=== PATIENT | female | born 1960 | race Caucasian/White ===

== ENCOUNTER 2020-02-23 22:57 | Emergency (ER) | payer OTHER ==
[2020-02-23 23:09] VITALS: BP 160/90; PULSE 145
[2020-02-23] MEDS ORDERED: Diltiazem 50 MG/10 ML SDV IVPUSH STA (23:13)
[2020-02-23] MEDS ORDERED: Diltiazem 100 MG in Sodium Chloride 0.9% 100 ML IV SCH (23:15)
--- NOTE | 2020-02-23 23:31 | EDM.PDOC ---
ED HPI GENERAL MEDICAL PROBLEM - General Chief Complaint: Cardiovascular Problem Stated Complaint: HEART RATE AT 155 Time Seen by Provider: 02/23/20 23:08 Source of Information: Reports: Patient History Limitations: Reports: No Limitations - History of Present Illness INITIAL COMMENTS - FREE TEXT/NARRATIVE: Mrs. Ulrich is a very pleasant 59-year-old woman who now presents to the ED with rapid palpitations. She states that she developed the sensation of a racing heart around 22:45 tonight, while lying in bed. No associated chest pain or discomfort, dyspnea, nausea, or diaphoresis. The patient did not take any [id number] or home remedies prior to coming to the ED. The patient states that she has had similar symptoms in the past, initially about 4 or 5 years ago. She believes she had a Holter monitor, which did not find any abnormalities. She then had another episode in December of this year, then 2 episodes about 3 weeks ago. She saw her PCP, who ordered a Holter monitor, which just arrived yesterday, however, the patient has not yet applied it. Here in the ED, the patient's initial BP is found to be modestly elevated at 160/90, with a tachycardia of 145 bpm. She is afebrile, saturating 100% on room air. The patient states that she has been told that she snores, but she has not been diagnosed with obstructive sleep apnea. Other than the rapid palpitations, the patient denies having a recent fever, chills, sore throat, ear pain, nasal or sinus congestion, cough, dyspnea, chest pain, nausea, vomiting, constipation, diarrhea, abdominal pain, urinary symptoms, recent weight gain or weight loss, recent bloody bowel movements or black bowel movements, recent joint aches, headaches, or rashes. The patient's PCP is Dr. Patricia Roach. - Related Data Allergies Allergy/AdvReac Type Severity Reaction Status Date / Time sulfamethoxazole Allergy Rash Verified 02/23/20 23:06 [From Bactrim] trimethoprim [From Bactrim] Allergy Rash Verified 02/23/20 23:06 Home Meds: Home Meds Hydrochlorothiazide 25 mg PO DAILY 11/21/15 [History] Levothyroxine 125 mcg PO DAILY 11/21/15 [History] Lisinopril 20 mg PO DAILY 11/21/15 [History] Meloxicam 7.5 mg PO DAILY 11/21/15 [History] Past Medical History HEENT History: Reports: Impaired Vision (wears glasses) Cardiovascular History: Reports: Hypertension Respiratory History: Reports: Asthma (PFT-confirmed) Musculoskeletal History: Reports: Osteoarthritis Endocrine/Metabolic History: Reports: Hypothyroidism - Past Surgical History HEENT Surgical History: Reports: Oral Surgery (wisdom teeth extraction in HS) Musculoskeletal Surgical History: Reports: Hip Replacement (right) Social & Family History - Tobacco Use Smoking Status *Q: Never Smoker - Alcohol Use Alcohol Use History: Yes Alcohol Use Frequency: Socially - Recreational Drug Use Recreational Drug Use: No - Living Situation & Occupation Living situation: Reports: (), Alone 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 ED EXAM, GENERAL - Physical Exam Exam: See Below Exam Limited By: No Limitations General Appearance: Alert, WD/WN, No Apparent Distress Eye Exam: Bilateral Eye: EOMI, Normal Inspection Ears: Normal External Exam, Hearing Grossly Normal Nose: Normal Inspection Throat/Mouth: Normal Inspection, Normal Lips, Normal Voice, No Airway Compromise Head: Atraumatic, Normocephalic Neck: Normal Inspection, Full Range of Motion Respiratory/Chest: No Respiratory Distress, Lungs Clear, Normal Breath Sounds, No Accessory Muscle Use Cardiovascular: Normal Peripheral Pulses, No Edema, No Gallop, No JVD, No Murmur, No Rub, Tachycardia (regular) Peripheral Pulses: 3+: Radial (L), Radial (R) GI/Abdominal: Normal Bowel Sounds, Soft, Non-Tender, No Organomegaly, No Distention, No Abnormal Bruit, No Mass (Female) Exam: Deferred Rectal (Female) Exam: Deferred Back Exam: Normal Inspection, Full Range of Motion, NT Extremities: Normal Inspection, Normal Range of Motion, No Pedal Edema, Normal Capillary Refill Neurological: Alert, Oriented, Normal Cognition, No Motor/Sensory Deficits Psychiatric: Normal Affect Skin Exam: Warm, Dry, Intact, Normal Color, No Rash EKG INTERPRETATION EKG Date: 02/23/20 Time: 23:06 Rhythm: A-Flutter (2:1 conduction) Rate (Beats/Min): 153 [place]: Normal P-Wave: Present QRS: Other (LVH likely secondary to repolarization abnormality) ST-T: Depressed (ST depression inferior lateral leads without T wave inversion, likely secondary to repolarization abnormality) QT: Normal Comparison: Change From Previous EKG (Was in [facility] without LVH on 11/21/2015) Course - Vital Signs Last Recorded V/S: Last Vital Signs Temp 36.3 C 02/23/20 23:07 Pulse 145 H 02/23/20 23:07 Resp 13 02/23/20 23:07 BP 160/90 H 02/23/20 23:07 Pulse Ox 100 02/23/20 23:07 - Orders/Labs/Meds Orders: Active Orders 24 hr Category Date Time Status EKG Documentation Completion [RC] STAT Care 02/23/20 23:11 Active EKG Documentation Completion [RC] STAT Care 02/24/20 00:30 Active Chest 2V [CR] Stat Exams 02/23/20 23:11 Taken Diltiazem [Cardizem] 100 mg Med 02/23/20 23:15 Active Sodium Chloride 0.9% [Normal Saline] 100 ml IV TITRATE Medication Orders Diltiazem HCl 100 mg/ Sodium (Chloride) 100 mls @ 10 mls/hr IV TITRATE SHERICE; Protocol Last Admin: 02/23/20 23:32 Dose: 10 mg/hr, 10 mls/hr Documented by: TITO Labs: Laboratory Tests 02/23/20 02/23/20 02/23/20 Range/Units 23:14 23:14 23:14 WBC 9.32 (3.98-10.04) K/mm3 RBC 4.10 (3.98-5.22) M/mm3 Hgb 11.0 L D (11.2-15.7) gm/dl Hct 34.7 (34.1-44.9) % MCV 84.6 D (79.4-94.8) fl MCH 26.8 (25.6-32.2) pg MCHC 31.7 L (32.2-35.5) g/dl RDW Std Deviation 43.6 (36.4-46.3) fL Plt Count 443 H D (182-369) K/mm3 MPV 10.0 (9.4-12.3) fl Neutrophils % (Manual) 59 (40-60) % Band Neutrophils % 0 (0-10) % Lymphocytes % (Manual) 29 (20-40) % Atypical Lymphs % 0 % Monocytes % (Manual) 8 (2-10) % Eosinophils % (Manual) 3 (0.7-5.8) % Basophils % (Manual) 1 (0.1-1.2) Platelet Estimate Increased Plt Morphology Comment Normal Polychromasia 1+ slight Hypochromasia 1+ slight RBC Morph Comment Abnormal D-Dimer, Quantitative 0.80 H (0.19-0.50) mg/L Sodium 135 L (136-145) mEq/L Potassium 3.6 (3.5-5.1) mEq/L Chloride 98 (98-107) mEq/L Carbon Dioxide 26 (21-32) mEq/L Anion Gap 14.6 (5-15) BUN 24 H (7-18) mg/dL Creatinine 1.3 H (0.55-1.02) mg/dL Est Cr Clr Drug Dosing 48.16 mL/min Estimated GFR (MDRD) 42 (>60) mL/min BUN/Creatinine Ratio 18.5 H (14-18) Glucose 100 (74-106) mg/dL Calcium 9.2 (8.5-10.1) mg/dL Magnesium (1.8-2.4) mg/dl Total Bilirubin 0.4 (0.2-1.0) mg/dL AST 18 (15-37) U/L ALT 12 L (14-59) U/L Alkaline Phosphatase 88 (46-116) U/L Troponin I < 0.017 (0.00-0.056) ng/mL Total Protein 8.8 H (6.4-8.2) g/dl Albumin 4.0 (3.4-5.0) g/dl Globulin 4.8 gm/dL Albumin/Globulin Ratio 0.8 L (1-2) TSH 3rd Generation (0.358-3.74) uIU/mL COVID-19 (NIKKI) (NEGATIVE) 02/23/20 02/23/20 Range/Units 23:30 23:41 WBC (3.98-10.04) K/mm3 RBC (3.98-5.22) M/mm3 Hgb (11.2-15.7) gm/dl Hct (34.1-44.9) % MCV (79.4-94.8) fl MCH (25.6-32.2) pg MCHC (32.2-35.5) g/dl RDW Std Deviation (36.4-46.3) fL Plt Count (182-369) K/mm3 MPV (9.4-12.3) fl Neutrophils % (Manual) (40-60) % Band Neutrophils % (0-10) % Lymphocytes % (Manual) (20-40) % Atypical Lymphs % % Monocytes % (Manual) (2-10) % Eosinophils % (Manual) (0.7-5.8) % Basophils % (Manual) (0.1-1.2) Platelet Estimate Plt Morphology Comment Polychromasia Hypochromasia RBC Morph Comment D-Dimer, Quantitative (0.19-0.50) mg/L Sodium (136-145) mEq/L Potassium (3.5-5.1) mEq/L Chloride (98-107) mEq/L Carbon Dioxide (21-32) mEq/L Anion Gap (5-15) BUN (7-18) mg/dL Creatinine (0.55-1.02) mg/dL Est Cr Clr Drug Dosing mL/min Estimated GFR (MDRD) (>60) mL/min BUN/Creatinine Ratio (14-18) Glucose (74-106) mg/dL Calcium (8.5-10.1) mg/dL Magnesium 2.1 (1.8-2.4) mg/dl Total Bilirubin (0.2-1.0) mg/dL AST (15-37) U/L ALT (14-59) U/L Alkaline Phosphatase (46-116) U/L Troponin I (0.00-0.056) ng/mL Total Protein (6.4-8.2) g/dl Albumin (3.4-5.0) g/dl Globulin gm/dL Albumin/Globulin Ratio (1-2) TSH 3rd Generation 17.398 H (0.358-3.74) uIU/mL COVID-19 (NIKKI) Negative (NEGATIVE) Meds: Medications Generic Name Dose Route Start Last Admin Trade Name Freq PRN Reason Stop Dose Admin Diltiazem HCl 100 mg/ Sodium 100 mls @ 10 mls/hr 02/23/20 23:15 02/23/20 23:32 Chloride IV 10 mg/hr TITRATE SHERICE 10 mls/hr Administration Protocol 10 MG/HR Discontinued Medications Generic Name Dose Route Start Last Admin Trade Name Wyatt PRN Reason Stop Dose Admin Diltiazem HCl 10 mg 02/23/20 23:13 02/23/20 23:31 Cardizem IVPUSH 02/23/20 23:14 10 mg ONETIME STA Administration - Re-Assessments/Exams Free Text/Narrative Re-Assessment/Exam: 02/23/20 23:28 As above, the patient has had several episodes of rapid palpitations over the past 4 to 5 years, and now presents to the ED after developing that again around 22:45 tonight, while in bed. Her ECG at triage indicates that she is in atrial flutter with 2-1 conduction. I have ordered a work-up that includes blood work, a chest x-ray, and a swab for the SARS-CoV-2 virus. In the meantime, the patient will be given a 10 mg diltiazem push, followed by a drip at 10 mg/h. 02/24/20 00:04 Two-view chest radiograph appears to be grossly normal. The cardiac silhouette is within normal limits. No pulmonary vascular congestion. No pleural effusions. No focal infiltrate. No pneumothorax. There is hyperinflation and bilateral diaphragmatic flattening, consistent with COPD. Formal read per the Radiologist pending. The patient's CBC is remarkable for a Hgb slightly depressed at 11.0, with a Hct normal at 34.7. Her platelets are elevated at 443,000, with the remainder of her CBC being unremarkable. Her CMP is remarkable for a sodium at the lower limits of normal of 135, and a BUN/Cr elevated at 24/1.3. The remainder of her CMP is unremarkable. Her magnesium level is within normal limits at 2.1. Her TSH is elevated at 17.398. Her troponin is undetectably low. Her D-dimer is slightly elevated at 0.80. Results of her test for the SARS-CoV-2 virus are still pending. 02/24/20 00:12 Test results thus far discussed with the patient. I explained her elevated D- dimer is likely due to her mild renal insufficiency, but offered a CTA of the chest to rule out a PE. She declined. 02/24/20 00:24 The patient's test for the SARS-CoV-2 virus has returned negative. The patient appears to have spontaneously converted to a normal sinus rhythm at 76 bpm. We will discontinue the diltiazem drip. I have ordered a repeat ECG, to confirm the conversion. 02/24/20 00:40 Repeat ECG at 00:35 demonstrates a normal sinus rhythm at 75 bpm. There is left atrial enlargement. No AV block. No ischemic changes. Normal transition. No LAD or RAD. No LVH or RVH. No intraventricular conduction delays. The QTc is within normal limits. I will discharge the patient home with the recommendation that she follow-up with her PCP to arrange to be seen by a Nanotechnician. Departure - Departure Time of Disposition: 00:42 Disposition: Home, Self-Care 01 Condition: Good Clinical Impression: Atrial flutter with rapid ventricular response, Elevated TSH, Mild renal insufficiency Referrals: Patricia Ross MD [Primary Care Provider] - Forms: ED Department Discharge Additional Instructions: You were seen in the emergency room after developing rapid palpitations tonight while lying in bed. An ECG obtained at triage found you to be in atrial flutter with 2:1 conduction. Work-up in the ER included blood work, a chest x-ray, and a swab for the SARS-CoV-2 virus. Your work-up found that you have a very mild renal insufficiency. Your work-up found your D-dimer, a marker of blood clot, to be slightly elevated. It is likely elevated because of your mild renal insufficiency. You declined an offer for a CT angiogram of your chest. Your work-up also found your TSH level to be elevated at 17.398. This indicates that your hypothyroidism is inadequately treated. The remainder of your work-up was unremarkable. You were treated with IV diltiazem, and you spontaneously converted to a normal sinus rhythm. We recommend that you follow-up with your PCP, Dr. Patricia Roach, for referral to a Nanotechnician for evaluation and treatment of your atrial flutter. If any other problems, please do not hesitate to return to the ER. Sepsis Event Note (ED) - Evaluation Sepsis Screening Result: No Definite Risk - Focused Exam Vital Signs: Vital Signs Temp Pulse Resp BP Pulse Ox 02/23/20 23:07 36.3 C 145 H 13 160/90 H 100 - My Orders Last 24 Hours: My Active Orders 02/23/20 23:11 EKG Documentation Completion [RC] STAT Chest 2V [CR] Stat 02/23/20 23:15 Diltiazem [Cardizem] 100 mg Sodium Chloride 0.9% [Normal Saline] 100 ml IV TITRATE 02/24/20 00:30 EKG Documentation Completion [RC] STAT - Assessment/Plan Last 24 Hours: My Active Orders 02/23/20 23:11 EKG Documentation Completion [RC] STAT Chest 2V [CR] Stat 02/23/20 23:15 Diltiazem [Cardizem] 100 mg Sodium Chloride 0.9% [Normal Saline] 100 ml IV TITRATE 02/24/20 00:30 EKG Documentation Completion [RC] STAT
--- NOTE | 2020-02-24 08:04 | CR ---
Chest: 2 views of the chest were obtained. Comparison: Prior chest x-ray of 11/21/15. Lungs are clear. No acute parenchymal change is appreciated. Bony structures are within. Heart size and mediastinum are normal. Lungs are clear with no acute parenchymal change. Slight scoliosis is seen within the spine. Impression: 1. Nothing acute is appreciated on 2 view chest x-ray. Diagnostic code #1 This report was dictated in MDT
== END 2020-02-24 00:54 | disposition home or self-care (01) ==
LOC: JD.ED 22:57
DX: I48.92 Unspecified atrial flutter (principal); R94.6 Abnormal results of thyroid function studies; N28.9 Disorder of kidney and ureter, unspecified; J45.909 Unspecified asthma, uncomplicated; E03.9 Hypothyroidism, unspecified; M19.90 Unspecified osteoarthritis, unspecified site; I10 Essential (primary) hypertension; Z88.2 Allergy status to sulfonamides; Z79.899 Other long term (current) drug therapy; Z11.59 Encounter for screening for other viral diseases
CPT/HCPCS: 36415; 71046; 80053; 83735; 84443; 84484; 85007; 85027; 85379; 87635; 93005; 96365; 99285; J3490; J7050; 93010; U0002